=== PATIENT | female | born 1960 | race Caucasian/White ===

== ENCOUNTER 2021-05-26 11:21 | Outpatient (CLI) | payer BC | END 2021-05-26 11:22 | disposition home or self-care (01) | LOC: CSHMAMMO 11:21 | PROVIDERS: ATTEND Internal Medicine | DX: Z12.31 Encounter for screening mammogram for malignant neoplasm of breast (principal); Z80.3 Family history of malignant neoplasm of breast | CPT/HCPCS: 77063; 77067 ==

== ENCOUNTER 2022-06-27 13:11 | Outpatient (CLI) | payer BC | END 2022-06-27 13:12 | disposition home or self-care (01) | LOC: CSHMAMMO 13:11 | PROVIDERS: ATTEND Internal Medicine | DX: Z12.31 Encounter for screening mammogram for malignant neoplasm of breast (principal); Z80.3 Family history of malignant neoplasm of breast | CPT/HCPCS: 77063; 77067 ==